=== PATIENT | male | born 1965 | race Caucasian/White ===

== ENCOUNTER 2017-02-13 23:38 | Emergency (ER) | payer SELFPAY, OTHER ==
[2017-02-14] MEDS: ONDANSETRON 4 MG INJ IV (00:34)
[2017-02-14] MEDS: SOD CHLORIDE 0.9% 1,000 ML IV (00:34)
[2017-02-14] MEDS: morphine 4 MG/ML VIAL IV (00:35)
[2017-02-14 01:04] LABS: ADD MAN DIFF? NO
[2017-02-14 01:09] LABS: BASOPHIL # 0.1 10^3/ul (0.0-0.1); BASOPHILS % 0.6 % (0.0-2.0); EOSINOPHILS # 0.3 10^3/ul (0.0-0.5); EOSINOPHILS % 2.5 % (0.0-7.0); HEMATOCRIT 40.9 % (42.0-52.0); HEMOGLOBIN 14.1 g/dl (14.0-18.0); LYMPHOCYTES # 3.5 10^3/ul (0.8-2.9); LYMPHOCYTES % 33.5 % (15.0-51.0); MEAN CORPUSCULAR HEMOGLOBIN 29.2 pg (29.0-33.0); MEAN CORPUSCULAR HGB CONC 34.5 g/dl (32.0-37.0); MEAN CORPUSCULAR VOLUME 84.7 fl (82.0-101.0); MEAN PLATELET VOLUME 9.6 fl (7.4-10.4); MONOCYTE # 0.8 10^3/ul (0.3-0.9); MONOCYTES % 7.7 % (0.0-11.0); NEUTROPHIL # 5.7 10^3/ul (1.6-7.5); PLATELET COUNT 248 10^3/UL (140-415); RED BLOOD COUNT 4.83 10^6/ul (4.70-6.10); RED CELL DISTRIBUTION WIDTH 12.7 % (11.5-14.5)
[2017-02-14 01:09] LABS: WHITE BLOOD COUNT 10.4 10^3/ul (4.8-10.8)
[2017-02-14 01:32] LABS: ALANINE AMINOTRANSFERASE 76 IU/L (13-69); ALBUMIN 4.3 g/dl (3.3-4.9); ALBUMIN/GLOBULIN RATIO 1.26; ALKALINE PHOSPHATASE 89 IU/L (42-121); ANION GAP 17 (8-16); ASPARTATE AMINO TRANSFERASE 41 IU/L (15-46); BILIRUBIN,INDIRECT 0.2 mg/dl (0-1.1); BILIRUBIN,TOTAL 0.2 mg/dl (0.2-1.3); BLOOD UREA NITROGEN 20 mg/dl (7-20); CALCIUM 9.4 mg/dl (8.4-10.2); CARBON DIOXIDE 25 mmol/L (21-31); CHLORIDE 103 mmol/L (97-110); CREATININE 1.18 mg/dl (0.61-1.24); GLUCOSE 130 mg/dl (70-220); LIPASE 92 U/L (23-300); POTASSIUM 3.7 mmol/L (3.5-5.1); SODIUM 141 mmol/L (135-144); TOTAL PROTEIN 7.7 g/dl (6.1-8.1)
[2017-02-14 01:33] LABS: LACTIC ACID 1.2 mmol/L (0.5-2.0)
[2017-02-14 01:57] LABS: ADD UMIC NO; UR ASCORBIC ACID NEGATIVE (NEGATIVE); UR BILIRUBIN (Dip) NEGATIVE (NEGATIVE); UR BLOOD (Dip) NEGATIVE (NEGATIVE); UR CLARITY CLEAR (CLEAR); UR COLOR YELLOW (YELLOW); UR GLUCOSE (Dip) NEGATIVE (NEGATIVE); UR KETONES (Dip) NEGATIVE (NEGATIVE); UR LEUKOCYTE ESTERASE (Dip) NEGATIVE Leu/ul (NEGATIVE); UR NITRITE (Dip) NEGATIVE (NEGATIVE); UR SPECIFIC GRAVITY (Dip) 1.028 (1.003-1.030); UR TOTAL PROTEIN (Dip) NEGATIVE (NEGATIVE); UR UROBILINOGEN (Dip) NEGATIVE (NEGATIVE)
== END 2017-02-14 03:13 | disposition home or self-care (01) ==
LOC: E/R 23:38
DX: R10.10 Upper abdominal pain, unspecified (principal); R11.2 Nausea with vomiting, unspecified; Z85.05 Personal history of malignant neoplasm of liver
CPT/HCPCS: 36415; 80053; 81003; 83605; 83690; 85025; 96374; 96375; 99284-25

== ENCOUNTER 2017-07-17 22:59 | Inpatient (IN) | payer MEDICARE, MEDICAID ==
[2017-07-17 23:38] LABS: ADD MAN DIFF? NO
[2017-07-17 23:39] LABS: WHITE BLOOD COUNT 11.2 10^3/ul (4.8-10.8)
[2017-07-17 23:39] LABS: BASOPHIL # 0.1 10^3/ul (0.0-0.1); BASOPHILS % 0.6 % (0.0-2.0); EOSINOPHILS # 0.3 10^3/ul (0.0-0.5); HEMATOCRIT 41.5 % (42.0-52.0); LYMPHOCYTES % 35.5 % (15.0-51.0); MEAN CORPUSCULAR HEMOGLOBIN 29.5 pg (29.0-33.0); MEAN CORPUSCULAR HGB CONC 33.7 g/dl (32.0-37.0); MEAN CORPUSCULAR VOLUME 87.4 fl (82.0-101.0); MEAN PLATELET VOLUME 9.5 fl (7.4-10.4); MONOCYTE # 0.9 10^3/ul (0.3-0.9); MONOCYTES % 7.9 % (0.0-11.0); NEUTROPHIL # 5.8 10^3/ul (1.6-7.5); NEUTROPHILS % 52.1 % (39.0-77.0); PLATELET COUNT 251 10^3/UL (140-415); RED BLOOD COUNT 4.75 10^6/ul (4.70-6.10); RED CELL DISTRIBUTION WIDTH 15.7 % (11.5-14.5)
[2017-07-17 23:44] LABS: ALANINE AMINOTRANSFERASE 79 IU/L (13-69); ALBUMIN 4.3 g/dl (3.3-4.9); ALKALINE PHOSPHATASE 90 IU/L (42-121); ANION GAP 16 (8-16); ASPARTATE AMINO TRANSFERASE 45 IU/L (15-46); BLOOD UREA NITROGEN 17 mg/dl (7-20); CALCIUM 9.6 mg/dl (8.4-10.2); CARBON DIOXIDE 27 mmol/L (21-31); CHLORIDE 103 mmol/L (97-110); CREATININE 1.07 mg/dl (0.61-1.24); GLUCOSE 131 mg/dl (70-220); INR 1.06; POTASSIUM 4.1 mmol/L (3.5-5.1); PROTIME 13.9 Sec (11.9-14.9); PT RATIO 1.1; SODIUM 142 mmol/L (135-144); TOTAL PROTEIN 7.6 g/dl (6.1-8.1)
[2017-07-17 23:57] LABS: TROPONIN-I < 0.010 ng/ml (0.000-0.120)
[2017-07-18] MEDS: IOHEXOL 350MG/ML 50 ML BTL (00:11)
[2017-07-18] MEDS: IOHEXOL 100 ML (00:11)
[2017-07-18] MEDS: SOD CHLORIDE 0.9% 100 ML (00:11)
[2017-07-18] MEDS: morphine 4 MG/ML VIAL IV (01:31)
[2017-07-18] MEDS ORDERED: HYDROmorphONE 1 MG/5 ML IV SYRINGE IV (02:42)
[2017-07-18] MEDS: HYDROmorphONE 0.5 MG/0.5 ML SYG IV (02:48)
[2017-07-18] MEDS: ONDANSETRON 4 MG INJ IV (03:26)
[2017-07-18] MEDS ORDERED: ACETAMINOPHEN 325 MG TAB PO ×2 (03:30→06:30)
[2017-07-18] MEDS ORDERED: ALBUTEROL/IPRATROPIUM (NEB) 3 ML AMP HHN (06:30)
[2017-07-18] MEDS ORDERED: HYDROCODONE/APAP (5/325) TAB PO (06:30)
[2017-07-18] MEDS ORDERED: ZOLPIDEM 5 MG TAB PO (06:30)
[2017-07-18] MEDS ORDERED: ONDANSETRON 4 MG INJ IV (06:30)
[2017-07-18] MEDS ORDERED: NACL 0.9% 3 ML SYG IV (06:30)
[2017-07-18] MEDS ORDERED: morphine 2 MG INJ IV (06:30)
[2017-07-18 08:17] LABS: ADD UMIC NO; UR ASCORBIC ACID NEGATIVE (NEGATIVE); UR BILIRUBIN (Dip) NEGATIVE (NEGATIVE); UR BLOOD (Dip) NEGATIVE (NEGATIVE); UR CLARITY CLEAR (CLEAR); UR COLOR YELLOW (YELLOW); UR GLUCOSE (Dip) NEGATIVE (NEGATIVE); UR KETONES (Dip) NEGATIVE (NEGATIVE); UR LEUKOCYTE ESTERASE (Dip) NEGATIVE Leu/ul (NEGATIVE); UR NITRITE (Dip) NEGATIVE (NEGATIVE); UR TOTAL PROTEIN (Dip) NEGATIVE (NEGATIVE); UR UROBILINOGEN (Dip) NEGATIVE (NEGATIVE)
[2017-07-18] MEDS: CAPECITABINE 500 MG TAB PO (09:00)
[2017-07-18] MEDS: HEPARIN 5,000 UNIT/0.5 ML VIAL SC (09:00)
[2017-07-18 10:17] LABS: ADD MAN DIFF? NO
[2017-07-18 10:35] LABS: WHITE BLOOD COUNT 10.2 10^3/ul (4.8-10.8)
[2017-07-18 10:35] LABS: BASOPHILS % 0.4 % (0.0-2.0); EOSINOPHILS # 0.1 10^3/ul (0.0-0.5); EOSINOPHILS % 1.3 % (0.0-7.0); HEMOGLOBIN 13.2 g/dl (14.0-18.0); LYMPHOCYTES # 2.9 10^3/ul (0.8-2.9); LYMPHOCYTES % 28.2 % (15.0-51.0); MEAN CORPUSCULAR HEMOGLOBIN 30.3 pg (29.0-33.0); MEAN CORPUSCULAR HGB CONC 34.7 g/dl (32.0-37.0); MEAN CORPUSCULAR VOLUME 87.4 fl (82.0-101.0); MEAN PLATELET VOLUME 9.4 fl (7.4-10.4); MONOCYTE # 0.7 10^3/ul (0.3-0.9); MONOCYTES % 7.1 % (0.0-11.0); NEUTROPHIL # 6.4 10^3/ul (1.6-7.5); NEUTROPHILS % 62.2 % (39.0-77.0); PLATELET COUNT 227 10^3/UL (140-415); RED BLOOD COUNT 4.35 10^6/ul (4.70-6.10); RED CELL DISTRIBUTION WIDTH 15.8 % (11.5-14.5)
[2017-07-18 10:38] LABS: ALANINE AMINOTRANSFERASE 73 IU/L (13-69); ALBUMIN 3.8 g/dl (3.3-4.9); ALBUMIN/GLOBULIN RATIO 1.31; ALKALINE PHOSPHATASE 77 IU/L (42-121); ANION GAP 14 (8-16); ASPARTATE AMINO TRANSFERASE 40 IU/L (15-46); BILIRUBIN,INDIRECT 1.1 mg/dl (0-1.1); BILIRUBIN,TOTAL 1.1 mg/dl (0.2-1.3); BLOOD UREA NITROGEN 17 mg/dl (7-20); CARBON DIOXIDE 28 mmol/L (21-31); CHLORIDE 104 mmol/L (97-110); CREATININE 0.97 mg/dl (0.61-1.24); GLUCOSE 134 mg/dl (70-220); SODIUM 142 mmol/L (135-144); TOTAL PROTEIN 6.7 g/dl (6.1-8.1)
[2017-07-21] MEDS ORDERED: CAPECITABINE 500 MG TAB PO ×2 (09:00→21:00)
== END 2017-07-18 17:30 | disposition left against medical advice (07) | DRG 312 ==
LOC: E/R 22:59 → MS3 07-18 03:09
DX: R55 Syncope and collapse (principal); C22.7 Other specified carcinomas of liver; R10.11 Right upper quadrant pain; R09.02 Hypoxemia; S09.90XA Unspecified injury of head, initial encounter; S16.1XXA Strain of muscle, fascia and tendon at neck level, initial encounter; D72.823 Leukemoid reaction; M50.30 Other cervical disc degeneration, unspecified cervical region; Y92.002 Bathroom of unspecified non-institutional (private) residence as the place of occurrence of the external cause
CPT/HCPCS: 70450; 71275; 72125; 80048; 80053; 80076; 81003; 84484; 85025; 85610; 85730; 86850; 86900; 86901; 93005; 93880; 96374; 96375; 99285-25